=== PATIENT | female | born 1980 | race Two or more races ===

== ENCOUNTER 2018-03-15 12:40 | Outpatient (CLI) | payer OTHER ==
[~2018-03-15 12:40] MED LIST: FLEXERIL 10 MG PO; TORADOL60 MG IM; VOLTAREM 50 MG PO; YAZ 28 TABLET1 EACH
== END 2018-03-15 12:47 | disposition home or self-care (01) ==
LOC: RAD 12:40
DX: K59.00 Constipation, unspecified (principal)

== ENCOUNTER 2019-03-01 19:47 | Emergency (ER) | payer OTHER ==
[~2019-03-01] VITALS: Ht 167.6 cm; Wt 59.0 kg
[2019-03-01] MEDS ORDERED: IBUPROFEN800 MG (19:51)
[2019-03-01] MEDS ORDERED: AMOXICILLIN500 M1 (19:51)
== END 2019-03-01 22:27 | disposition home or self-care (01) ==
LOC: ER 19:47
DX: G50.0 Trigeminal neuralgia (principal)

== ENCOUNTER 2021-03-29 19:42 | Emergency (ER) | payer OTHER ==
[~2021-03-29] VITALS: Ht 167.6 cm; Wt 63.5 kg
[~2021-03-29 19:42] MED LIST changes: +AMOXICILLIN500 M1; +IBUPROFEN800 MG
[2021-03-29] MEDS ORDERED: KEFLEX750 MG (19:54)
[2021-03-29] MEDS ORDERED: CARBAMAZEPINE100 M1 PO (20:45)
[2021-03-29] MEDS ORDERED: IBU800 MG PO (20:45)
== END 2021-03-29 20:52 | disposition home or self-care (01) ==
LOC: ER 19:42
DX: G50.0 Trigeminal neuralgia (principal)

== ENCOUNTER 2022-08-01 09:10 | Outpatient (CLI) | payer OTHER ==
[~2022-08-01 09:10] MED LIST changes: +CARBAMAZEPINE100 M1 PO; +IBU800 MG PO; +KEFLEX750 MG
== END 2022-08-01 09:30 | disposition home or self-care (01) ==
LOC: SONOGRAMA 09:10
PROVIDERS: ATTEND Internal Medicine
DX: R10.11 Right upper quadrant pain (principal); Z87.42 Personal history of other diseases of the female genital tract

== ENCOUNTER 2023-08-21 10:35 | Emergency (ER) | payer OTHER ==
[~2023-08-21] VITALS: Ht 167.6 cm; Wt 59.0 kg
[2023-08-21 11:21] LABS: HEMATOCRIT 36.9 % (36.0-45.00); HEMOGLOBIN 12.6 g/dL (12.0-15.00); MEAN CELL VOLUME 83.5 fL (80.00-100.00); MEAN CORPUSCULAR HEMOGLOBIN 28.6 pg (27.00-32.0); MEAN CORPUSCULAR HGB CONC 34.2 g/dl (32.0-36.0); PLATELET COUNT 280 K/uL (150-450); RED BLOOD COUNT 4.42 M/uL (4.00-6.00); RED CELL DISTRIBUTION WIDTH 14.8 % (11.5-14.5)
[2023-08-21 11:52] LABS: CALCIUM 8.9 mg/dL (8.5-10.1); CREATININE SERUM 0.81 mg/dL (0.55-1.02); GFR 77.17; POTASSIUM 3.96 mEq/L (3.5-5.1)
== END 2023-08-21 14:14 | disposition home or self-care (01) ==
LOC: ER 10:35
PROVIDERS: General Practice
DX: M25.512 Pain in left shoulder (principal); M54.2 Cervicalgia; T14.90XA Injury, unspecified, initial encounter; W19.XXXA Unspecified fall, initial encounter; Y93.89 Activity, other specified; Y92.89 Other specified places as the place of occurrence of the external cause; Y99.8 Other external cause status